=== PATIENT | female | born 1965 | race Caucasian/White ===

== ENCOUNTER 2021-06-20 22:03 | Emergency (ER) | payer OTHER ==
[~2021-06-20] VITALS: Ht 162.6 cm; Wt 83.9 kg
[2021-06-20 22:20] VITALS: BP_SYST 139
[2021-06-21] MEDS ORDERED: ACETAMINOPHEN 325 MG TABLET PO ONE (01:45)
[2021-06-21] MEDS ORDERED: ACET-2634 PO (01:48)
[2021-06-21] MEDS ORDERED: CYCL10TA24 PO (01:48)
[2021-06-21 01:58] VITALS: BP_SYST 125
== END 2021-06-21 01:59 | disposition home or self-care (01) ==
LOC: SED 22:03
DX: S16.1XXA Strain of muscle, fascia and tendon at neck level, initial encounter (principal); S39.012A Strain of muscle, fascia and tendon of lower back, initial encounter; Z88.1 Allergy status to other antibiotic agents; Z88.5 Allergy status to narcotic agent; Z79.899 Other long term (current) drug therapy; V47.6XXA Car passenger injured in collision with fixed or stationary object in traffic accident, initial encounter; Y93.89 Activity, other specified; Y92.89 Other specified places as the place of occurrence of the external cause; Y99.8 Other external cause status
CPT/HCPCS: 72100-TC; 99283